=== PATIENT | female | born 1985 | race Caucasian/White ===

== ENCOUNTER 2017-12-18 19:15 | Emergency (ER) | payer OTHER ==
[2017-12-18] MEDS: LORAZEPAM 1 MG TAB PO (21:34)
[2017-12-18] MEDS: KETOROLAC 60 MG INJ IM (21:59)
== END 2017-12-18 23:10 | disposition home or self-care (01) ==
LOC: FTE 19:15
DX: S20.212A Contusion of left front wall of thorax, initial encounter (principal); F17.210 Nicotine dependence, cigarettes, uncomplicated; Y04.0XXA Assault by unarmed brawl or fight, initial encounter
CPT/HCPCS: 71045; 71100; 81025; 96372; 99284-25